=== PATIENT | female | born 1955 | race Asian ===

== ENCOUNTER 2017-03-13 11:46 | Day surgery (SDC) | payer OTHER ==
[~2017-03-13] VITALS: Ht 160 cm; Wt 53.5 kg
[2017-03-13] MEDS ORDERED: PROPOFOL 20 ML ONE (13:45)
[2017-03-13] MEDS ORDERED: VITAMIN D3 (13:50)
[2017-03-13] MEDS ORDERED: METFORMIN (13:50)
[2017-03-13] MEDS ORDERED: MVI (13:50)
[2017-03-13] MEDS ORDERED: [UNRECOGNIZED DRUG - OTHER] (13:50)
[2017-03-13 13:53] VITALS: Ht 160 cm; Wt 53.5 kg
[2017-03-13 14:05] VITALS: BP 115/60; PULSE 57; RESP 18
[2017-03-13 15:15] VITALS: BP 149/70; RESP 20
--- NOTE | 2017-03-13 15:58 | OPR ---
Date/Time of Note Date/Time of Note DATE: 03/13/17 TIME: 15:56 Operative Report Preoperative Diagnosis * Colorectal cancer screening * Change in bowel habits/diarrhea Postoperative Diagnosis Impression: * Normal colonic mucosa to cecum * Rule out microscopic, lymphocytic or collagenous colitis. Biopsies are obtained * Moderate-sized internal hemorrhoids Plan: * Review pathology as soon as available * Annual Hemoccult stool testing * Screening colonoscopy in 10 years . Operation/Procedure Performed * Colonoscopy with biopsies Surgeon: BONNIE BRYANT MD Anesthesia: MAC Estimated Blood Loss: none Specimens * Random colon biopsies Grafts/Implants * None BONNIE BRYANT MD Mar 13, 2017 15:58
== END 2017-03-13 16:24 | disposition home or self-care (01) ==
LOC: GIL 11:46
PROVIDERS: ATTEND Internal Medicine Gastroenterology
DX: Z12.11 Encounter for screening for malignant neoplasm of colon (principal); K64.8 Other hemorrhoids; E11.9 Type 2 diabetes mellitus without complications; E78.5 Hyperlipidemia, unspecified
CPT/HCPCS: 45380; 88305; Z7610